=== PATIENT | male | born 1935 | race Caucasian/White ===

== ENCOUNTER → 2017-05-03 | Outpatient (CLI) | payer OTHER, BC ==
[~2017-05-03] VITALS: Ht 172.7 cm; Wt 97.5 kg
[~2017-05-03] MED LIST: ESCITALOPRAM OX20 MG PO; FLOMAX0.4 MG PO; LIPITOR 20 MG T20 M1 PO; LUTEIN-ZEAXANT1 EACH PO; PRINIVIL20 MG PO; RAPAFLO4 MG PO; TRADJENTA5 MG PO; TRAMADOL 50 MG50 MG PO; TRICOR145 MG PO; VITAMIN D 5050000 I1 PO; ZANTAC 150MG T150 MG PO
--- NOTE | ~2017-05-03 | HPC ---
[facility] [address] [place] [address] PAIN MANAGEMENT CONSULTATION Name: PIEDAD SOSA Room #: REG CL Ayse#: [id number] Admission: 05/03/17 Attend Phys: Keaton Carvajal DO Discharge: Date of : 34 Report #: [id number] THIS REPORT FOR: //name// CC: Alden Carvajal DATE OF SERVICE: 05/03/2017 The patient is a very pleasant 82-year-old gentleman. He was seen about 6 months ago in September, prior he had been seen some 8 months earlier in 01/2016. Both times he was seen with right low back pain diagnosed as right SI mediated pain and treated with an SI joint injection. The patient notes both injections including the last one afforded some 90% relief for nearly 6 months. Pain has gradually begun to recur without antecedent trauma and overuse. Notes pain is in the right low back, buttock, does not radiate below the leg. The patient does not take anti-inflammatory medications as they had been not efficacious and did cause a little gastritis. He does take tramadol rarely for pain. PHYSICAL EXAMINATION: Shows an 82-year-old gentleman, BMI is modestly elevated about 32 kilograms per meter squared. Vital signs are otherwise stable. Rises from chair using armrest. Diffuse tenderness across right low back. Lower extremity strength is symmetric. Lumbar flexion is limited about 60 degrees. Positive Sha test on the right, positive Gaenslen test and negative straight leg raise. ASSESSMENT: Right sacroiliac joint dysfunction, lumbosacral spondylosis. RECOMMENDATION: 1. Right SI joint injection under fluoroscopy today. Continue physical therapy, the patient has been in scheduled physical therapy and to his credit, continues to do physical therapy exercises at home. 2. Right SI joint injections today and follow up in 3 weeks for reevaluation. He is having a little bit of radicular pain into the groin, but he thinks this maybe from recent lifting. If he still has ongoing pain, we will consider epidural injection at that time, but I am hopeful of simply repeating the right SI joint injection today will help with chronic symptoms. ASSESSMENT: Right sacroiliac joint dysfunction. PROCEDURE NOTE: Right SI joint injection under fluoroscopy. PROCEDURE: After written informed consent was obtained, the patient taken to the fluoroscopy suite, placed in prone position. After sterile prep and drape, skin wheal was raised. A 22-gauge stylet needle was placed to contact the inferior aspect of the right SI joint. Negative aspiration was accomplished, 40 mg triamcinolone plus 2 mL of 0.5% preservative-free bupivacaine was injected [address] [address] PAIN MANAGEMENT CONSULTATION Name: PIEDAD SOSA Room #: REG ALPHONSE Tavera#: [id number] Admission: 05/03/17 Attend Phys: Keaton Carvajal DO Discharge: Date of : 34 Report #: [id number] into and around the joint. Needle was removed, area was cleansed, Band-Aids applied. The patient was monitored for an appropriate period of time, discharged in good and stable condition. <ELECTRONICALLY SIGNED> By: Keaton Carvajal DO 05/03/17 [id number] Keaton Carvajal DO /nt
[2017-05-03 12:48] VITALS: BP 169/79
== END | disposition home or self-care (01) ==
LOC: PAIN 07:32
DX: M53.3 Sacrococcygeal disorders, not elsewhere classified (principal); M47.897 Other spondylosis, lumbosacral region; Z87.891 Personal history of nicotine dependence; Z98.890 Other specified postprocedural states; Z79.899 Other long term (current) drug therapy

== ENCOUNTER → 2019-04-28 | Outpatient (CLI) | payer OTHER ==
[~2019-04-28] VITALS: Ht 170.2 cm; Wt 95.6 kg
[~2019-04-28] MED LIST changes: +AMARYL2 MG PO; +ANDROGEL TOP; +CENTRUM SILVER1 EAC4 PO; +LISINOPRIL40 MG PO; -PRINIVIL20 MG PO; -RAPAFLO4 MG PO; +RAPAFLO8 MG PO; -VITAMIN D 5050000 I1 PO; +VITAMIN D2000 UNIT PO; +VOLTAREN GEL 1100 G1 TOP
--- NOTE | ~2019-04-28 | HPC ---
[facility] [address] [place] [address] PAIN MANAGEMENT CONSULTATION Name: PIEDAD SOSA Room #: REG CL Murali.#: [id number] Admission: 04/28/19 ������������������ Attend Phys: Edouard Johnston MD Discharge: ������������������ Date of : 34 Report #: [id number] THIS REPORT FOR: //name// CC: Alden Johnston DATE OF SERVICE: 04/28/2019 CHIEF COMPLAINT: I started walking a mile and started to notice increased pain in the right back and buttocks. HISTORY: The patient is an 84-year-old gentleman who has been followed in the pain clinic because of chronic pain in the buttocks area. He underwent a SI joint injection in 2018. He has noted very good benefit from that. He returns today indicating that his pain has started to increase. He has continued to stay active. He is having pain that radiates down in his right buttocks. An injection in the sacroiliac area was quite beneficial in the past. States that this pain is very similar to that and would like to proceed with another injection today. ALLERGIES: No known drug allergies. CURRENT MEDICATIONS: Amaryl 2 mg, multivitamin, Centrum, lutein-zeaxanthin 25/5, tramadol 50 mg q.6 hours, silodosin 4 mg, Zanaflex 150 mg at bedtime, TriCor 145 mg, Prinivil 20 mg, Tradjenta 5 mg, Lipitor 20 mg, multivitamin D3 of 4000 units. PAIN CLINIC ASSESSMENT/PQRS: 1. History of osteoarthritis. The patient has had left knee replacement in 2006. The patient is not being treated for rheumatoid arthritis. 2. Height 5 feet 7 inches, weight 210 pounds, BMI is 33. 3. VITAL SIGNS: Blood pressure 126/56, pulse 65, respiratory rate 18, room air saturation is 100%. 4. Pain intensity 0-4 when walking. 5. Fall. The patient has not fallen in the last 3 months. 6. Blood thinner. The patient is not on a blood thinning medication. 7. Hypertension. The patient is being treated for hypertension. 8. Opioids greater than 6 weeks. The patient is not receiving opioids on a regular basis. 9. Risk assessment tool, low for opioid use. 10. Functional assessment tool. 11. Recreational drug use. The patient denies use of recreational drugs. 12. Tobacco: The patient is a former smoker. 13. Alcohol: The patient drinks alcoholic beverages on occasion. PHYSICAL EXAMINATION: [facility] [address] [place] [address] PAIN MANAGEMENT CONSULTATION Name: PIEDAD SOSA Room #: REG CLI RuthNicole#: [id number] Admission: 04/28/19 ������������������ Attend Phys: Edouard Johnston MD Discharge: ������������������ Date of : 34 Report #: [id number] GENERAL: The patient is a well-developed, well-nourished white male. Appears his stated age. He is alert and oriented x 3. His affect is appropriate. Speech is fluent. HEENT: Normocephalic, atraumatic. Extraocular eye muscles intact. Sclerae nonicteric. Mucous membranes are moist. NECK: Without adenopathy or JVD. The patient has some pain and discomfort in lower portion of his back. Has pain and discomfort in the SI joint area. The patient has a positive Javier's sign. Anterior and posterior spring test, increased pain in the right buttocks area. Uses a chair to go from a sitting to a standing position. IMPRESSION: 1. Right sacroiliac joint dysfunction history. 2. Lumbosacral spondylosis. 3. Diabetes. 4. Hypertension. 5. Renal disease. 6. Stomach problems. 7. Emotional problems. 8. Joint disease/arthritis. 9. Low back pain. 10. Intervertebral disk degeneration. 11. Spinal stenosis. RECOMMENDATIONS: We discussed the treatment options with the patient. Risks and benefits of an SI joint injection were again discussed. Possible complications of the procedure, which could include but are not limited to infection, worsening of pain, no improvement in pain, increased pain were discussed and the patient elects to proceed. PROCEDURE NOTE: The patient was taken to the procedure area. He was then assisted in getting on the examination table. A pillow was placed under the abdomen to bolster and improve positioning. Fluoroscopy using anterior, posterior as well as lateral viewing were implemented. The SI joint on the right was identified using fluoroscopy. This area had been sterilely prepped with a Betadine solution and allowed to dry. A 25-gauge needle was then used to perform a skin wheal with 0.5% bupivacaine. The patient's area was then infiltrated with 0.5% bupivacaine. A 25-gauge spinal needle was then advanced into the area. The patient states this did reproduce a portion of discomfort. We slowly injected the medicine and did reproduce the patient's discomfort. A total of 5 mL of 0.5% bupivacaine and 40 mg Depo-Medrol was injected. The patient tolerated the procedure well. There were no complications. ____ remained in the pain clinic for an appropriate amount of time. We would like to [address] [address] PAIN MANAGEMENT CONSULTATION Name: PIEDAD SOSA Room #: REG ALPHONSE Tavera#: [id number] Admission: 04/28/19 ������������������ Attend Phys: Edouard Johnston MD Discharge: ������������������ Date of : 34 Report #: [id number] thank you for letting us participate in his care. We hope he continues to improve. The patient's pain was 0 at the time of discharge. ��������������������������������������������� ���������������������������������������� By: ��������������������������������������������� [id number] Edouard Johnston MD /keyur
[2019-04-28 10:45] VITALS: BP 126/56
--- NOTE | 2019-04-28 11:18 | NUR ---
Pain Clinic Assessment: 1. History of Osteoarthritis: joints History of Rheumatoid Arthritis: Not Applicable 2. Height: 5 ft. 7 in. 170.2 cm. Weight: 210.8 lb. oz. 95.618 kg. Patient's BMI: 33.0 3. Vital Signs: BP: 126/56 Pulse: 65 Resp: 18 Temp: 02 Sat: 100 ECG Mon: 4. Pain Intensity: 0 NOW 4 WALKING 5. Fall Risk: Dizziness: N Needs help standing or walking: N Fallen in the last 3 months: N Fall risk comments: 6. Patient on Blood Thinner: None 7. History of Hypertension: Y 8. Opioid Therapy greater than 6 weeks: N Opiate Contract Signed: 9. Risk Assessment Tool Provided: 10. Functional Assessment Tool: 11. Recreational Drug Use: Never Drug Type: Tobacco Use: Former Smoker Tobacco Type: Amount or Packs/day: How Many Years: Alcohol Use: Yes Frequency: Quant:
== END | disposition home or self-care (01) ==
LOC: PAIN 06:46
DX: M53.3 Sacrococcygeal disorders, not elsewhere classified (principal); G89.29 Other chronic pain; M51.16 Intervertebral disc disorders with radiculopathy, lumbar region; M47.897 Other spondylosis, lumbosacral region; I10 Essential (primary) hypertension; E11.9 Type 2 diabetes mellitus without complications; M19.90 Unspecified osteoarthritis, unspecified site; M48.061 Spinal stenosis, lumbar region without neurogenic claudication; K92.9 Disease of digestive system, unspecified; F98.9 Unspecified behavioral and emotional disorders with onset usually occurring in childhood and adolescence; N28.9 Disorder of kidney and ureter, unspecified; Z87.891 Personal history of nicotine dependence; Z79.899 Other long term (current) drug therapy; Z96.652 Presence of left artificial knee joint; Z98.890 Other specified postprocedural states

== ENCOUNTER → 2019-08-30 | Outpatient (CLI) | payer OTHER ==
[~2019-08-30] VITALS: Ht 170.2 cm; Wt 96.3 kg
[2019-08-30 13:04] VITALS: BP 129/75
--- NOTE | 2019-08-30 13:17 | NUR ---
Pain Clinic Assessment: 1. History of Osteoarthritis: KNEES FEET SHOULDERS NECK History of Rheumatoid Arthritis: DENIES 2. Height: 5 ft. 7 in. 170.2 cm. Weight: 212.2 lb. oz. 96.253 kg. Patient's BMI: 33.2 3. Vital Signs: BP: 129/75 Pulse: 78 Resp: 20 Temp: 02 Sat: 98 ECG Mon: 4. Pain Intensity: 3-4 5. Fall Risk: Dizziness: N Needs help standing or walking: N Fallen in the last 3 months: N Fall risk comments: 6. Patient on Blood Thinner: None 7. History of Hypertension: Y 8. Opioid Therapy greater than 6 weeks: N Opiate Contract Signed: 9. Risk Assessment Tool Provided: 10. Functional Assessment Tool: 11. Recreational Drug Use: Never Drug Type: Tobacco Use: Former Smoker Tobacco Type: Amount or Packs/day: How Many Years: Alcohol Use: Yes Frequency: Special Occasions Quant:
== END | disposition home or self-care (01) ==
LOC: PAIN 06:59
DX: M53.3 Sacrococcygeal disorders, not elsewhere classified (principal); I10 Essential (primary) hypertension; Z98.890 Other specified postprocedural states; Z96.652 Presence of left artificial knee joint; Z87.891 Personal history of nicotine dependence; E11.9 Type 2 diabetes mellitus without complications; M19.90 Unspecified osteoarthritis, unspecified site; Z79.899 Other long term (current) drug therapy

== ENCOUNTER → 2021-04-11 | Outpatient (CLI) | payer OTHER ==
[~2021-04-11] VITALS: Ht 170.2 cm; Wt 93.4 kg
[2021-04-11 13:25] VITALS: BP 114/50
--- NOTE | 2021-04-11 13:37 | NUR ---
Pain Clinic Assessment: 1. History of Osteoarthritis: KNEES FEET SHOULDERS NECK History of Rheumatoid Arthritis: DENIES 2. Height: 5 ft. 7 in. 170.2 cm. Weight: 206.0 lb. oz. 93.441 kg. Patient's BMI: 32.3 3. Vital Signs: BP: 114/50 Pulse: 83 Resp: 16 Temp: 02 Sat: 98 ECG Mon: 4. Pain Intensity: 0 5. Fall Risk: Dizziness: Y Needs help standing or walking: N Fallen in the last 3 months: N Fall risk comments: 6. Patient on Blood Thinner: None 7. History of Hypertension: Y 8. Opioid Therapy greater than 6 weeks: N Opiate Contract Signed: 9. Risk Assessment Tool Provided: 10. Functional Assessment Tool: 11. Recreational Drug Use: Never Drug Type: Tobacco Use: Former Smoker Tobacco Type: Amount or Packs/day: How Many Years: Alcohol Use: Yes Frequency: Special Occasions Quant: 1-2
== END | disposition home or self-care (01) ==
LOC: PAIN 10:25
PROVIDERS: ATTEND Anesthesiology Pain Medicine
DX: M53.3 Sacrococcygeal disorders, not elsewhere classified (principal); M51.36 Other intervertebral disc degeneration, lumbar region; M47.897 Other spondylosis, lumbosacral region; I10 Essential (primary) hypertension; E11.9 Type 2 diabetes mellitus without complications; M19.90 Unspecified osteoarthritis, unspecified site; K21.9 Gastro-esophageal reflux disease without esophagitis; Z98.890 Other specified postprocedural states; Z79.899 Other long term (current) drug therapy; Z87.891 Personal history of nicotine dependence